=== PATIENT | male | born 1990 | race Two or more races ===

== ENCOUNTER 2020-11-27 20:52 | Emergency (ER) | payer SELFPAY ==
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
== END 2020-11-27 21:30 | disposition home or self-care (01) ==
LOC: MW.ED 20:52
DX: S00.03XA Contusion of scalp, initial encounter (principal); S00.33XA Contusion of nose, initial encounter; W22.8XXA Striking against or struck by other objects, initial encounter
CPT/HCPCS: 99283